=== PATIENT | male | born 1975 | race Caucasian/White ===

== ENCOUNTER 2016-12-06 07:06 | Emergency (ER) | payer OTHER ==
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
[2016-12-06] MEDS: HYDROcodone/APAP 5-325MG 1 EACH TAB PO STA (08:07)
--- NOTE | 2016-12-06 08:32 | XR ---
EXAMINATION TYPE: XR Hip Complete RT DATE OF EXAM: 12/06/2016 8:26 AM CLINICAL HISTORY: pain TECHNIQUE: AP and frogleg views of the right hip are obtained. COMPARISON: None. FINDINGS: There is no acute fracture/dislocation evident. The joint space appears within normal li mits. The overlying soft tissue appears unremarkable. IMPRESSION: 1. There is no acute fracture or dislocation. ICD 10 NO FRACTURE, INITIAL EVALUATION
--- NOTE | 2016-12-06 08:32 | XR ---
EXAMINATION TYPE: XR ankle complete RT DATE OF EXAM: 12/06/2016 8:26 AM COMPARISON: NONE HISTORY: Pain TECHNIQUE: Frontal, lateral and oblique images of the right ankle are obtained. COMPARISON: None. FINDINGS: There is no acute fracture/dislocation evident. The joint spaces appear within normal albert its. The overlying soft tissue appears unremarkable. IMPRESSION: There is no acute fracture or dislocation seen.
--- NOTE | 2016-12-06 08:33 | XR ---
EXAMINATION TYPE: XR knee complete RT DATE OF EXAM: 12/06/2016 8:26 AM CLINICAL HISTORY: pain TECHNIQUE: Three views of the right knee are obtained. COMPARISON: None. FINDINGS: There is no acute fracture/dislocation. The tri-compartment joint spaces appear within no rmal limits. The overlying soft tissue appears unremarkable. IMPRESSION: There is no acute fracture or dislocation.ICD 10 NO FRACTURE, INITIAL EVALUATION
[2016-12-06 09:00] VITALS: BP 143/92; PULSE 62; RESP 16; TEMP 97.7
== END 2016-12-06 09:00 | disposition home or self-care (01) ==
LOC: EC 07:06
DX: S70.01XA Contusion of right hip, initial encounter (principal); S80.01XA Contusion of right knee, initial encounter; V09.00XA Pedestrian injured in nontraffic accident involving unspecified motor vehicles, initial encounter; Y93.89 Activity, other specified; Y92.524 Gas station as the place of occurrence of the external cause
CPT/HCPCS: 73502; 99283

== ENCOUNTER 2019-03-27 13:18 | Emergency (ER) | payer OTHER ==
[2019-03-27 13:23] VITALS: RESP 16; TEMP 97.8
[2019-03-27] MEDS ORDERED: TOPICAL SKIN ADHESIVE 1 EACH AMP TOPICAL ONE (14:11)
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
[2019-03-27 14:24] VITALS: BP 122/80; PULSE 80
== END 2019-03-27 14:24 | disposition home or self-care (01) ==
LOC: EC 13:18
DX: S91.112A Laceration without foreign body of left great toe without damage to nail, initial encounter (principal); Z53.29 Procedure and treatment not carried out because of patient's decision for other reasons; W20.8XXA Other cause of strike by thrown, projected or falling object, initial encounter; Y93.89 Activity, other specified
CPT/HCPCS: 12001; 99282

== ENCOUNTER 2019-06-14 08:44 | Emergency (ER) | payer OTHER ==
[2019-06-14 08:56] VITALS: BP 135/83; PULSE 65; RESP 18; TEMP 98
[2019-06-14] MEDS ORDERED: KETOROLAC 30 MG/ML 1 ML VIAL IVP STA (09:12)
[2019-06-14] MEDS ORDERED: diphenhydrAMINE 50 MG/ML 1 ML VIAL IVP STA (09:12)
[2019-06-14] MEDS ORDERED: SODIUM CHLORIDE 0.9% 1,000 ML IV ONE (09:12)
[2019-06-14] MEDS ORDERED: METOCLOPRAMIDE 5 MG/ML 2 ML VIAL IVP STA (09:12)
--- NOTE | 2019-06-14 09:13 | ED ---
Headache HPI - General Chief Complaint: Headache Stated Complaint: headache Time Seen by Provider: 06/14/19 09:08 Source: patient, RN notes reviewed Mode of arrival: ambulatory Limitations: no limitations - History of Present Illness Initial Comments: This a 44-year-old male presents emergency Department with chief complaint of headache. Patient is on history of headaches states that extends present for last few days. Patient admits that this is his typical headache just not alleviated with his Imitrex. Patient admits to photophobia, nausea vomiting. Denies any focal weakness and states that he's acting his normal self no ataxia. No confusion. Patient has fever, chills, neck pain or neck stiffness. - Related Data Home Medications Medication Instructions Recorded Confirmed Ibuprofen [Motrin Ib] 400 mg PO Q6H PRN 06/14/19 06/14/19 SUMAtriptan SUCCINATE [Imitrex] 50 mg PO ONCE PRN 06/14/19 06/14/19 Allergies Allergy/AdvReac Type Severity Reaction Status Date / Time No Known Allergies Allergy Verified 06/14/19 09:09 Review of Systems ROS Statement: Those systems with pertinent positive or pertinent negative responses have been documented in the HPI. ROS Other: All systems not noted in ROS Statement are negative. Past Medical History Past Medical History: No Reported History Additional Past Medical History / Comment(s): Migraines History of Any Multi-Drug Resistant Organisms: None Reported Past Surgical History: No Surgical Hx Reported Additional Past Surgical History / Comment(s): eye, Past Psychological History: No Psychological Hx Reported Smoking Status: Never smoker Past Alcohol Use History: Occasional Past Drug Use History: None Reported General Exam Limitations: no limitations General appearance: alert, in no apparent distress Head exam: Present: atraumatic, normocephalic, normal inspection Eye exam: Present: normal appearance, PERRL, EOMI. Absent: scleral icterus, conjunctival injection, periorbital swelling ENT exam: Present: normal exam, normal oropharynx, mucous membranes moist, TM's normal bilaterally Neck exam: Present: normal inspection, full ROM. Absent: tenderness, meningismus, lymphadenopathy Respiratory exam: Present: normal lung sounds bilaterally. Absent: respiratory distress, wheezes, rales, rhonchi, stridor Cardiovascular Exam: Present: regular rate, normal rhythm, normal heart sounds. Absent: systolic murmur, diastolic murmur, rubs, gallop, clicks Neurological exam: Present: alert, oriented X3, CN II-XII intact, normal gait, reflexes normal, other (Finger to nose intact bilaterally heel to alexis within normal limits). Absent: motor sensory deficit Skin exam: Present: warm, dry, intact, normal color. Absent: rash Course Vital Signs 06/14/19 08:54 Temperature 98.0 F Pulse Rate 65 Respiratory 18 Rate Blood Pressure 135/83 O2 Sat by Pulse 98 Oximetry Medical Decision Making - Medical Decision Making 44-year-old male presented for migraine headache. This was his typical headache with no neuro symptoms. Patient was given Toradol Reglan and Benadryl IV fluids symptoms have resolved. Patient will be discharged return parameters were discussed Disposition Clinical Impression: Migraine Disposition: HOME SELF-CARE Condition: Stable Instructions (If sedation given, give patient instructions): Acute Headache (ED) Additional Instructions: Please return to the Emergency Department if symptoms worsen or any other concerns. Is patient prescribed a controlled substance at d/c from ED?: No Referrals: Fahad Washington MD [Primary Care Provider] - 1-2 days Time of Disposition: 10:22
== END 2019-06-14 11:22 | disposition home or self-care (01) ==
LOC: EC 08:44
DX: G43.909 Migraine, unspecified, not intractable, without status migrainosus (principal)
CPT/HCPCS: 99283; 96374; 96375 ×2; J1200; J2765; J1885

== ENCOUNTER → 2020-09-20 | Outpatient (CLI) | payer OTHER ==
--- NOTE | 2020-09-20 16:34 | XR ---
EXAMINATION TYPE: XR orbit detect foreign body DATE OF EXAM: 09/20/2020 COMPARISON: None HISTORY: History of metal removed from left eye TECHNIQUE: Three-view bilateral orbits FINDINGS: No suspicious radiopaque foreign body in or about the orbits to contraindicate MRI are evid ent. Paranasal sinuses are clear. There is left septal deviation. IMPRESSION: 1. Normal bilateral orbits
== END | disposition home or self-care (01) ==
LOC: RAD 15:55
PROVIDERS: ATTEND Physician Assistant
DX: Z18.12 Retained nonmagnetic metal fragments (principal); Z98.890 Other specified postprocedural states
CPT/HCPCS: 70030